=== PATIENT | female | born 1955 | race Caucasian/White ===

== ENCOUNTER → 2017-04-05 | Outpatient (CLI) | payer OTHER | LOC: BMCIMAGING 13:27 | PROVIDERS: ATTEND Internal Medicine | DX: Z12.31 Encounter for screening mammogram for malignant neoplasm of breast (principal) | CPT/HCPCS: G0202 ==

== ENCOUNTER → 2018-04-27 | Outpatient (CLI) | payer OTHER | LOC: BMCIMAGING 13:57 | PROVIDERS: ATTEND Internal Medicine | DX: E04.2 Nontoxic multinodular goiter (principal) | CPT/HCPCS: 76536-PO ==

== ENCOUNTER → 2018-07-20 | Outpatient (CLI) | payer OTHER | LOC: BMCIMAGING 13:07 | PROVIDERS: ATTEND Internal Medicine | DX: M81.0 Age-related osteoporosis without current pathological fracture (principal) ==

== ENCOUNTER 2018-08-16 07:16 | Emergency (ER) | payer OTHER ==
--- NOTE | 2018-08-16 07:23 | EDPHY ---
H & P Time Seen by Provider: 08/16/18 07:23 HPI/ROS: CHIEF COMPLAINT: Headache after trauma HISTORY OF PRESENT ILLNESS: Patient returned from a cycling trip to [facility] on Tuesday, was feeling very just leg but went to a dance class on Tuesday and tripped over a [employer] foot and hit her head on the mirror wall very hard. She has had a headache ever since, associated with nausea. Saw her primary care doctor yesterday and was given narcotic for sleep. Today the headache is more severe and associated with continued nausea. It has now been more than 24 hr since her head injury. Not associated with double vision or vomiting or difficulty with balance or speech or strength or sensation or neck pain. Symptoms moderate to severe. Worse with trying to concentrate and she still does feel a little bit"out of it." REVIEW OF SYSTEMS: Eye: no change in vision ENT: no sore throat Cardiac: no chest pain or syncope Pulmonary: no cough or SOB Abdomen: HPI, no diarrhea or abdominal pain Musculoskeletal: no back pain Skin: no rash Neuro: HPI Constitutional: no fever : no urinary symptoms A comprehensive 10 point review of systems is otherwise negative aside from elements mentioned in the history of present illness. PAST MEDICAL HISTORY: Negative Social history: Primary care Dr. Rice at [facility] General Appearance: Alert and conversant, cooperative. Eyes: No scleral icterus. Pupils equal reactive extraocular motion intact. ENT, Mouth: No hemotympanum. No bruising around the eyes or behind the ears. Respiratory: Normal respiratory effort, breath sounds equal, lungs are clear to auscultation. Cardiovascular: Regular rate and rhythm. Gastrointestinal: Abdomen is soft and non tender. Neurological: Alert, face symmetric, normal motor and sensory in extremities. Ambulatory without ataxia. Fluent speech. Normal [id number] bilaterally. Skin: Warm and dry, no rashes. Musculoskeletal: No midline spinal tenderness. Psychiatric: Not agitated. Emergency Department course/MDM: Plan for head CT with worsening headache after head trauma, discussed and consented. Differential diagnosis considered for head injury including but not limited to concussion, skull fracture, intraparenchymal contusion, subarachnoid, subdural and epidural hematoma. 810: Negative noncontrast head CT for trauma per Dr. Bhatia. Results discussed, declined antiemetics, warned about decreased brain stimulation for concussion recovery. Ibuprofen 600 mg. Smoking Status: Never smoked Constitutional: Initial Vital Signs Temperature (C) 36.5 C 08/16/18 07:19 Heart Rate 57 L 08/16/18 07:19 Respiratory Rate 16 08/16/18 07:19 Blood Pressure 119/69 08/16/18 07:19 O2 Sat (%) 96 08/16/18 07:19 O2 Delivery Mode Room Air Allergies/Adverse Reactions: No Known Allergies Allergy (Unverified 08/16/18 07:18) Home Medications: Medication Instructions Recorded Calcium 08/16/18 Fosamax 5mg 08/16/18 VAGIFEM 08/16/18 MDM/Departure - MDM Imaging Results: Imaging Impressions Head CT 08/16/18 07:34 Impression: No evidence for acute intracranial abnormality. Results called and discussed with Jose Vidal on 08/16/2018 at 8:10 a.m. - Depart Disposition: Home, Routine, Self-Care Clinical Impression: Concussion Qualifiers: Encounter type: initial encounter Loss of consciousness presence/duration: without LOC Qualified Code(s): S06.0X0A - Concussion without loss of consciousness, initial encounter Condition: Good Instructions: Concussion (ED) Referrals: Wagner Rice MD [Primary Care Provider] - As per Instructions
[2018-08-16] MEDS ORDERED: IBUPROFEN 600 MG TAB PO ONE (08:17)
[2018-08-16] MEDS ORDERED: ONDANSETRON DISINTEGRATING 4 MG TAB PO ONE (08:27)
[2018-08-16 08:35] VITALS: BP 128/74
== END 2018-08-16 08:33 | disposition home or self-care (01) ==
DX: S06.0X0A Concussion without loss of consciousness, initial encounter (principal); W01.198A Fall on same level from slipping, tripping and stumbling with subsequent striking against other object, initial encounter; Y93.41 Activity, dancing; Y92.39 Other specified sports and athletic area as the place of occurrence of the external cause; Y99.9 Unspecified external cause status

== ENCOUNTER → 2018-12-18 | Outpatient (CLI) | payer OTHER | LOC: BMCIMAGING 11:33 | PROVIDERS: ATTEND Urology | DX: K59.00 Constipation, unspecified (principal) ==